=== PATIENT | male | born 1955 | race Two or more races ===

== ENCOUNTER 2018-10-23 10:11 | Day surgery (SDC) | payer OTHER ==
[~2018-10-23] VITALS: Ht 180.3 cm; Wt 97.1 kg
[2018-10-23] VITALS (10 sets, daily range): BP systolic 109–145; BP diastolic 79–99
[~2018-10-23 10:11] MED LIST: NKM; ceFAZolin 1gm IVPB IVPB ONE; celeBREX 200mg Cap **SURGERY PATIENTS ONLY ORAL ONE; oxyCONTIN 20mg tab ORAL ONE
--- NOTE | 2018-10-23 11:21 | Operative Note - PDOC ---
Operative Note Operative Note Pre-op Diagnosis: right shoulder internal derangment Procedure: see op report Post-op Diagnosis: same as pre-op plus Operative Findings: consistent w/pre-op dx studies Anesthesia: general Specimen: none Complications: none Condition: stable Estimated Blood Loss: none Implant(s) used?: No Yung Parker MD Oct 23, 2018 11:21
--- NOTE | 2018-10-23 11:21 | Pre-Procedure Note/Attestation ---
Pre-Procedure Note/Attestation Complete Prior to Procedure Planned Procedure: right Procedure Narrative: shoulder diagnosctic arthroscopy, sad, possible rc rpeair Indications for Procedure Pre-Operative Diagnosis: right shoulder internal derangment Attestation I attest that I discussed the nature of the procedure; its benefits; risks and complications; and alternatives (and the risks and benefits of such alternatives ), prior to the procedure, with the patient (or the patient's legal inbound sales representative). I attest that, if there was a reasonable possibility of needing a blood transfusion, the patient (or the patient's legal inbound sales representative) was given the [facility] standardized written summary, pursuant to the [place] Blood Safety Act ([place] Health and Safety Code # 1645, as amended). I attest that I re-evaluated the patient just prior to the surgery and that there has been no change in the patient's H&P, except as documented below: Yung Parker MD Oct 23, 2018 11:21
[2018-10-23] MEDS ORDERED: LR 1000ml 1,000 ML IVLG SCH (11:25)
--- NOTE | 2018-10-23 11:25 | Anethesia Preoperative Eval ---
Anesthesia Pre-op PMH/ROS General Date of Evaluation: Oct 23, 2018 Anesthesiologist: Bennett ASA Score: ASA 2 Mallampati Score Class I : Soft palate, uvula, fauces, pillars visible Class II: Soft palate, uvula, fauces visible Class III: Soft palate, base of uvula visible Class IV: Only hard plate visible Mallampati Classification: Class III Surgeon: Keith Diagnosis: Right shoulder internal derangement Surgical Procedure: Right shoulder arthroscopy Anesthesia History: none Family History: no anesthesia problems Allergies: Coded Allergies: No Known Allergies (Unverified , 10/23/18) Medications: see eMAR Patient NPO?: Yes NPO Date: Oct 22, 2018 NPO Time: 22:00 Past Medical History Cardiovascular: Reports: HTN; Denies: CAD, [place], valve dz, arrhythmia, other Pulmonary: Denies: asthma, COPD, NIRALI, other Gastrointestinal/Genitourinary: Denies: GERD, CRI, ESRD, other Neurologic/Psychiatric: Denies: dementia, CVA, depression/anxiety, TIA, other Endocrine: Denies: DM, hypothyroidism, steroids, other HEENT: Denies: cataract (L), cataract (R), glaucoma, KOBUK (L), KOBUK (R), other Hematology/Immune: Denies: anemia, DVT, bleeding disorder, other Musculoskeletal/Integumentary: Denies: OA, RA, DJD, DDD, edema, other Other: obesity PSxH Narrative: cataract sx, umbilical hernia repair Anesthesia Pre-op Phys. Exam Physician Exam see chart Constitutional: NAD Cardiovascular: RRR Respiratory: CTA Airway Exam Mallampati Score: Class III MO: limited ROM: full Teeth: intact Anesthesia Pre-op A/P Labs see chart Studies Pre-op Studies: EKG - sr Risk Assessment & Plan Assessment: ASA II Plan: GA with right interscalene nerve block Status Change Before Surgery: No Pre-Antibiotics Drug: Ancef 2g Given Within 1 Hr of Incision: Yes Oksnaa Angelo MD Oct 23, 2018 11:25
[2018-10-23] MEDS ORDERED: Midazolam 2mg/2ml Inj ONE (11:29)
[2018-10-23] MEDS ORDERED: fentaNYL 100 mcg/2 mL IV ONE (11:29)
[2018-10-23] MEDS ORDERED: Propofol 200mg/20ml IV ONE (11:29)
[2018-10-23] MEDS ORDERED: Lidocaine 1% MPF 10mg/ml 5ml ONE (11:29)
[2018-10-23] MEDS ORDERED: Metoclopramide 10mg/2ml Inj IVP PRN (11:30)
[2018-10-23] MEDS ORDERED: Tylenol #3 tab (300mg/30mg) ORAL PRN (11:30)
[2018-10-23] MEDS ORDERED: Midazolam 2mg/2ml Inj IVP PRN (11:30)
[2018-10-23] MEDS ORDERED: LORazepam Inj 2mg/ml 1ml IV PRN (11:30)
[2018-10-23] MEDS ORDERED: DiphenhydrAMINE 50mg/ml Inj IVP PRN (11:30)
[2018-10-23] MEDS ORDERED: Hydromorphone 0.5mg/0.5ml inj IVP PRN (11:30)
[2018-10-23] MEDS ORDERED: D5 1/2NS 1,000 ML IV SCH (11:30)
[2018-10-23] MEDS ORDERED: HYDROcodone/Acetamin 5/325 tab ORAL PRN (11:30)
[2018-10-23] MEDS ORDERED: Ketorolac 30mg Inj IV PRN (11:30)
[2018-10-23] MEDS ORDERED: HYDROmorphone 1mg/ml Carpuject SUBQ PRN (11:30)
[2018-10-23] MEDS ORDERED: fentaNYL 100 mcg/2 mL IV PRN (11:30)
[2018-10-23] MEDS ORDERED: celeBREX 200mg Cap **SURGERY PATIENTS ONLY ORAL ONE (11:41)
[2018-10-23] MEDS ORDERED: oxyCONTIN 20mg tab ORAL ONE (11:41)
[2018-10-23] MEDS ORDERED: Ropivacaine 5mg/ml Vial 30ml INJ ONE (12:10)
[2018-10-23] MEDS ORDERED: Zemuron 50mg/5ml Inj IV ONE (12:19)
[2018-10-23] MEDS ORDERED: EPINEPHrine 1mg/1ml Amp ONE (12:22)
[2018-10-23] MEDS ORDERED: Duramorph PF 5mg/10ml amp ONE (12:26)
[2018-10-23] MEDS ORDERED: Ketorolac 30mg Inj ONE ×2 (12:26→12:48)
[2018-10-23] MEDS ORDERED: Kenalog-40 1ml Vial ONE (12:26)
[2018-10-23] MEDS ORDERED: LR 1000ml ONE (12:30)
[2018-10-23] MEDS ORDERED: NS Irrig 4000ml IRRIG ONE ×2 (12:30→13:25)
[2018-10-23] MEDS ORDERED: Dexamethasone 4mg/ml vial ONE (12:48)
--- NOTE | 2018-10-24 00:45 | Operative Note - Dictated ---
DATE OF OPERATION: 10/23/2018 PREOPERATIVE DIAGNOSIS: Right shoulder full-thickness rotator cuff tear. POSTOPERATIVE DIAGNOSES: 1. Right shoulder full-thickness rotator cuff tear. 2. Right shoulder partial biceps tendon tear extending to the superior labrum consistent with a superior labrum anterior and posterior tear, grade 4. 3. Impingement syndrome and bursitis. PROCEDURES: 1. Right shoulder diagnostic arthroscopy with extensive intraarticular debridement. 2. Right shoulder arthroscopic rotator cuff repair. 3. Right shoulder subacromial decompression bursectomy. SURGEON: Yung Parker M.D. ANESTHESIA: Interscalene general. INDICATION FOR PROCEDURE: The patient is a pleasant gentleman, who has had progressive right shoulder pain and was noted to have full-thickness rotator cuff tear. He has failed conservative treatment. He elected to undergo right shoulder arthroscopy rotator cuff repair. Risks, limitations, expectations, and complications of procedure were discussed in detail. All questions addressed. DESCRIPTION OF PROCEDURE: After informed consent was obtained, the patient was brought to the operating room and placed the patient under general anesthesia. Interscalene block was placed. The patient was then carefully placed in beach-chair position. Right shoulder was prepped and draped in a sterile manner. Time-out was performed. Inferolateral stab incision was then made. Trocar was introduced into the shoulder joint. There was fraying of the anterior labrum extending superiorly, extending to the biceps tendon. The footprint of supraspinatus was completely off the greater tuberosity. Shaver was then placed through the rotator cuff into the joint, then debridement of the biceps tendon as well as labrum was performed. Once that was completed, tissue lateral to the articular margin debrided to create a nice bleeding bony surface. Camera was then placed in the subacromial space. Complete bursectomy was performed. The undersurface of acromion was identified. Acromioplasty was started from lateral to medial and completed from posterior to anterior. Once that was done, two arthroscopic anchors were then placed. This was cinched down the supraspinatus along the greater tuberosity. Once that was done, camera was placed in the subacromial space back in the glenohumeral joint and rotator cuff footprint was recreated. At this point, the instruments were removed. Portal sites were closed with 3-0 Monocryl sutures. Steri-Strips and sterile dressing were applied. The patient was awoken and taken to the recovery room with stable vital signs. ESTIMATED BLOOD LOSS: None. COMPLICATIONS: None. SPECIMENS: None. IMPLANTS: Include two anchors. Yung Parker M.D. DR: MILADY JOB#: [id number] CC:
== END 2018-10-23 15:50 | disposition home or self-care (01) ==
LOC: SUR 10:11
DX: M75.121 Complete rotator cuff tear or rupture of right shoulder, not specified as traumatic (principal); S46.211A Strain of muscle, fascia and tendon of other parts of biceps, right arm, initial encounter; M75.41 Impingement syndrome of right shoulder; M71.9 Bursopathy, unspecified; I10 Essential (primary) hypertension; X58.XXXA Exposure to other specified factors, initial encounter; Y92.9 Unspecified place or not applicable
CPT/HCPCS: 29823; 29826; C1713; J0171; J0690; J1100; J1885; J2250; J2405; J2704; J2795; J3010; 94003; 94150